=== PATIENT | female | born 1955 | race Caucasian/White ===

== ENCOUNTER 2019-05-24 07:54 | Day surgery (SDC) | payer OTHER ==
[2019-05-20 09:54] VITALS: BMI 31.1
[2019-05-24] MEDS ORDERED: TETRACAINE 0.5% OPHTH SOLN 2 ML BOTTLE ONE (10:32)
[2019-05-24] MEDS ORDERED: LIDOCAINE 1%/EPI 1:100000 (20 ML MULTI DOSE VIAL) ONE ×2 (10:32→12:55)
[2019-05-24] MEDS ORDERED: THROMBIN (RECOMBINANT) 5,000 UNIT VIAL TP ONE ×2 (10:32→13:58)
[2019-05-24] MEDS ORDERED: BUPIVACAINE HCL/PF 0.5% (5MG/ML) 10 ML VIAL ONE ×2 (10:32→12:55)
[2019-05-24] MEDS ORDERED: OXYMETAZOLINE 0.05% NASAL SOLUTION 15 ML BOTTLE NS ONE (10:32)
[2019-05-24] MEDS ORDERED: ERYTHROMYCIN 0.5% OPHTHALMIC OINTMENT 3.5 GM TUBE ONE (10:32)
[2019-05-24] MEDS ORDERED: POVIDONE-IODINE 5% OPHTHALMIC PREP 30 ML SOLUTION ONE (10:32)
[2019-05-24] MEDS ORDERED: MIDAZOLAM HCL 2 MG/2 ML SINGLE DOSE VIAL ONE (10:47)
[2019-05-24] MEDS ORDERED: PROPOFOL 20 ML ONE ×3 (10:47)
[2019-05-24] MEDS ORDERED: LIDOCAINE HCL/PF 2% SDV 5ML VIAL ONE (11:39)
[2019-05-24] MEDS ORDERED: ceFAZolin SODIUM 1 GM VIAL ONE (11:56)
[2019-05-24] MEDS ORDERED: ONDANSETRON 4 MG/2 ML VIAL ONE ×2 (12:01→15:01)
[2019-05-24] MEDS ORDERED: DEXAMETHASONE SOD PHOSPHATE 4 MG/1 ML VIAL ONE (12:01)
[2019-05-24] MEDS ORDERED: ePHEDrine SULFATE 50 MG/1 ML AMPULE ONE (12:05)
[2019-05-24] MEDS ORDERED: ONDANSETRON 4 MG/2 ML VIAL IVPUSH PRN (14:43)
[2019-05-24] MEDS ORDERED: oxyCODONE HCL 5 MG TABLET PO PRN ×2 (14:43)
[2019-05-24] MEDS ORDERED: PROMETHAZINE HCL 25 MG/1 ML VIAL IVPUSH PRN (14:43)
[2019-05-24] MEDS ORDERED: oxyCODONE HCL 5 MG TABLET ONE ×2 (15:28→16:25)
[2019-05-24 16:30] VITALS: TEMP 98.3
[2019-05-24] MEDS ORDERED: oxyCODONE HCL 5 MG TABLET PO ONE (16:30)
[2019-05-24 17:02] VITALS: BP 134/76; PULSE 80
--- NOTE | 2019-05-25 15:01 | OP ---
DATE OF OPERATION: 05/24/2019 PREOPERATIVE DIAGNOSES: Nasolacrimal obstruction, right, and dermatochalasis and fat prominence, bilateral upper lids, in addition to yellowish lesion nasal right upper lid. POSTOPERATIVE DIAGNOSES: Nasolacrimal obstruction, right, and dermatochalasis and fat prominence, bilateral upper lids, in addition to yellowish lesion nasal right upper lid. PROCEDURE: 1. Examination under anesthesia. 2. Dacryocystorhinostomy, right. 3. Silicone intubation, right. 4. Lacrimal sac biopsy, right. 5. Blepharoplasty, bilateral upper lids. 6. Excision of lesion nasal right upper lid. ANESTHESIA: LMA. COMPLICATIONS: None. ESTIMATED BLOOD LOSS: 30 mL. OPERATIVE REPORT: Patient brought to the operating room and placed on the operating room table. Vital signs monitored by Anesthesia. Tetracaine was placed in both eyes. Patient was placed under LMA anesthesia. Lid creases were marked symmetrically approximately 9-10 mm above the central lid margin tapering nasally and temporally. The extent of the temporal lancaster had been marked preoperatively in the holding area and nasal measurements were rechecked with calipers. The amount of skin that could be safely pinched between forceps without causing lash eversion was marked. At the superior end of the ellipse this left about 11 mm below the brow skin brow skin and the upper extent of the elliptical incision. Timeout was performed and then 2% Xylocaine with 1:100,000 epinephrine was injected subcutaneously in both upper lids for a total of 3 mL bilaterally. The tear trough had been marked as well on the right side in preparation for dacryocystorhinostomy and the right nostril after the patient was prepped and draped in the usual sterile fashion was then packed with cottonoids moistened with Afrin. Following procedures were performed bilaterally: Lid creases were incised. The superior edge of the ellipse was incised. The skin was removed with a [place] needle and hemostasis was achieved with the [place] needle. Antibiotic irrigation was used throughout the case. The orbicularis was opened widely across the lid. Septum was opened widely and nasal fat pad was then released and a pedicle was developed and then the pedicle of nasal fat was brought into the center of the eyelid after it had been released of its fibrous attachments and sutured to the underside of the orbicularis with a single 6-0 Vicryl. The nasal pedicle and central fat were then conservatively sculpted or cauterized in order to create a smooth contour of the upper lids. Attention was turned to the lateral portion of the upper lids over the superolateral orbital rim. Dissection was carried down with the [place] needle to the orbital rim and the orbicularis was plicated to the orbital rim. The orbicularis below and above the incision was closed with two 5-0 Vicryl sutures as a brassier suture. Prior to doing this the sub brow fat pad was released from the periosteum so that the brow could elevate temporally and then the brassier sutures, the two 5-0 Vicryl sutures, were placed on either side. Hemostasis was in evidence and the wound was then closed with interrupted and running 6-0 nylon suture in plastic technique. It should be noted that on the right side there was a xanthelasma nasally on the right upper lid and this was excised as a pentagon and the superior edge of the incision was advanced nasally and closed with 2 buried 6-0 Vicryl sutures and the skin was closed with 2 interrupted 6-0 plain sutures in this area. This completed the blepharoplasty with a fat transposition and the brassier suture and the excision of a xanthelasma on the right upper lid. Attention was now turned to the DCR. Prior to closing the incisions for the blepharoplasty 2% Xylocaine with 1:100,000 epinephrine and 0.5% Marcaine in a 50:50 mixture was injected in the tear trough down to the anterolateral crest, lateral nasal sidewall and under direct visualization in the middle meatus, middle turbinate and inferior meatus and external naris and then the nose was repacked with cottonoids moistened with Afrin. The tear trough incision was now made with a 15 blade. This was dissected down to the anterior lacrimal crest with a Lacey scissor and blunt spreading and a Q-tip. The anterior limb of the medial canthal tendon was identified with a [place] periosteal elevator and then the periosteum and the anterior limb of the medial canthal tendon were incised and the lacrimal fossa was exposed by reflecting the lacrimal sac laterally along with the periosteum. The posterior portion of the sac of the lacrimal fossa was already penetrated up and Kerrison rongeur was used to create an osteotomy centered on the lacrimal sac fossa extending from and including the anterior lacrimal crest to the posterior lacrimal crest and from the medial canthal tendon to the nasolacrimal duct. Nasal mucosa was removed and part of the middle turbinate was removed as well as this was impinging on the osteotomy site. The upper and lower puncta were dilated and intubated, tenting the medial wall of the sac medially. The sac was opened on its medial surface with a No. 12 blade. Anterior and posterior lacrimal sac flaps were created with relaxing incisions. The posterior lacrimal sac flap was biopsied and sent for pathology. The internal common canaliculus was dilated and the upper and lower puncta were then intubated with Cornelius probes which both passed through the same internal common canaliculus and were retrieved through the right external naris with a Cornelius hook. Antibiotic irrigation and packing with gauze soaked in thrombin were performed throughout the case through the nose and through the external wound. Once there was reasonable hemostasis the anterior lacrimal sac flap was secured to the periosteum anterior to the osteotomy with mattress and interrupted 4-0 chromic sutures. Subcuticular tissues were closed with two 5-0 Vicryl sutures and the skin was closed with running 6-0 plain suture with plastic technique. The stents were removed from the probes and the stent was tied and secured to the right external naris with a 6-0 Prolene suture. Once this was secured the silicone was tested and there was minimal tension on the silicone loop in the medial canthus. The scope was introduced and suction was performed, demonstrating a high septal deviation but no bell impingement on the internal ostium. Afrin was sprayed in the nose. Erythromycin ointment was placed on the sutures and the patient was taken to the recovery room in stable condition. JENNY PICKETT M.D. [id number]
--- NOTE | 2019-05-30 15:23 | PATH ---
Surgical Pathology Report Patient Name: REKHA TOVAR [facility]. Rec. #: [id number] /Age/Gender: 1955 (Age: 64) / F Account: [id number] Location: [facility] Taken: 05/24/2019 Received: 05/24/2019 Reported: 05/30/2019 Physicians: Connor Santiago Specimen(s) Received A: LESION RIGHT UPPER EYE LID B: RIGHT LACRIMAL SAC Clinical History Blocked right tear duct, lesion right upper eyelid, dermatochalasis Final Diagnosis A. UPPER EYELID, RIGHT, LESION, EXCISION: SKIN SHOWING XANTHELASMA. B LACRIMAL SAC, RIGHT, BIOPSY: LACRIMAL SAC TISSUE SHOWING MARKED CHRONIC INFLAMMATION AND FIBROSIS. Electronically Signed Gladys Camargo M.D. Gross Description A. Received in formalin labeled "lesion right upper eyelid," is a 0.4 x 0.3 x 0.2 cm lynch car[place], polypoid portion of skin. The specimen is submitted in toto in one cassette. B. Received in formalin labeled "right lacrimal sac," are 3 lynch carlton portions of soft tissue ranging from 0.2-0.5 cm in greatest dimension. The specimen is submitted in toto in one cassette. 05/26/2019 saudi05/26/2019
== END 2019-05-24 17:15 | disposition home or self-care (01) ==
LOC: FASU 07:54
PROVIDERS: ATTEND Ophthalmology
PROC: 08BX0ZX Excision of Right Lacrimal Duct, Open Approach, Diagnostic (ICD-10-PCS; 2019-05-24)
PROC: 08B Eye, Excision (ICD-10-PCS; 2019-05-24)
PROC: 081X0Z3 Bypass Right Lacrimal Duct to Nasal Cavity, Open Approach (ICD-10-PCS; principal; 2019-05-24 12:07)
PROC: 08SP0ZZ Reposition Left Upper Eyelid, Open Approach (ICD-10-PCS; 2019-05-24 12:07)
PROC: 08SN0ZZ Reposition Right Upper Eyelid, Open Approach (ICD-10-PCS; 2019-05-24 12:07)
DX: H02.834 Dermatochalasis of left upper eyelid (principal); H04.551 Acquired stenosis of right nasolacrimal duct; H02.831 Dermatochalasis of right upper eyelid; L98.8 Other specified disorders of the skin and subcutaneous tissue; H05.41 Enophthalmos due to atrophy of orbital tissue
CPT/HCPCS: 88304-TC; 94760